=== PATIENT | male | born 1975 ===

== ENCOUNTER → 2024-05-11 | Day surgery (SDC) | payer SELFPAY ==
[2024-05-11] VITALS (8 sets, daily range): BP systolic 125–140; BP diastolic 72–92; PULSE 47–64; TEMP 97.7–98.2
[~2024-05-11] VITALS: Ht 180.3 cm; Wt 89.5 kg
[~2024-05-11] MED LIST: Acetaminophen 325 MG TAB PO PRN; Acetaminophen 500 MG TAB PO SCH; D5NS & 20 mEq KCl 1,000 ML IV SCH; FLOMAX 0.40.4 MG/CAP PO; Furosemide 40 MG/4 ML VIAL ONE; Glycopyrrolate 0.2 MG/ML 1 ML VIAL ONE; HYDROmorphone 1 MG/1 ML SYRINGE [PACU/SDC ONLY] IV PRN; Hyoscyamine 0.125 MG Sublingual TAB SL PRN; Iohexol 300 - 100 ML VIAL IV ONE; Ketorolac 15 MG/ML VIAL IV ONE; LR 1,000 ML IV SCH; Lidocaine 2% (20 MG/ML) 20 ML UROJET UR ONE; Lidocaine PF 2% (20 MG/ML) 5 ML VIAL ONE; MOTRIN 800800 MG/TAB PO; Morphine 4 MG/ML VIAL IV PRN; NORCO 325 MG-51 TAB PO; NS 1,000 ML IV ONE; NS 10 ML IV ONE; NS 100 ML IV SCH; Naloxone 0.4 MG/ML VIAL IV PRN; Ondansetron 4 MG/2 ML VIAL IV ONE; Ondansetron 4 MG/2 ML VIAL IV PRN; Ondansetron 4 MG/2 ML VIAL ONE; PERCOCET 325 MG1 TA2 PO; PYRIDIUM 100MG100 MG PO; TYLENOL 8 HR PO; ZOFRAN ODT4 MG PO; cefTRIAXone 1 G in Water For Injection,Sterile 10 ML IV ONE; dexAMETHasone 10 MG/ML VIAL ONE; droPERidol 2.5 MG/ML 2 ML VIAL IV PRN; fentaNYL 50 MCG/ML 1 ML SYRINGE/VIAL [PACU/SDC ONLY] IV PRN; fentaNYL 50 MCG/ML 2 ML VIAL ONE; hydrALAZINE 20 MG/ML 1 ML VIAL IV PRN
[2024-05-11 07:58] LABS: BASO # 0.1 K/mm3 (0.0-0.2); BASO % 0.5 % (0.0-2.0); EOS # 0.1 K/mm3 (0.0-0.7); EOS % 1.3 % (0.0-4.0); GRAN # 8.2 K/mm3 (1.4-6.5); GRAN % 73.9 % (42.2-75.2); HEMATOCRIT 38.8 % (42.0-52.0); HEMOGLOBIN 12.7 g/dl (13.5-18.0); LYMPH # 1.8 K/mm3 (1.2-3.4); LYMPH % 16.4 % (20.0-51.0); MEAN CELL VOLUME 91 fl (80.0-100.0); MEAN CORPUSCULAR HEMOGLOBIN 30 pg (27-31); MEAN CORPUSCULAR HGB CONC 33 g/dl (33.0-37.0); MEAN PLATELET VOLUME 10.5 fl (7.4-10.4); MONO # 0.8 K/mm3 (0.1-0.6); MONO % 7.6 % (1.7-9.3); PLATELET COUNT 178 K/mm3 (130-400); RED BLOOD COUNT 4.25 M/mm3 (4.20-5.60); REDCELL DISTRIBUTION WIDTH-CV 13.1 % (11.5-14.5)
[2024-05-11 08:18] LABS: ALBUMIN 3.8 g/dL (3.5-5.0); BILIRUBIN,TOTAL 0.4 mg/dL (0.2-1.2); CALCIUM 8.7 mg/dL (8.4-10.2); CREATININE, serum 1.09 mg/dL (0.72-1.25); POTASSIUM 4.2 mEq/L (3.5-4.5); TOTAL PROTEIN 6.3 g/dl (6.2-8.1)
--- NOTE | 2024-05-11 12:50 | NUR ---
Patient to room 359 from the ED by wheelchair. A&Ox4, independent in the room. VSS. IV CDI. Denies pain and discomfort. NPO. Instructed to strain urine. Nurse oriented the patient to location, room and call light. Call light within reach
[2024-05-11 13:08] LABS: URINE APPEARANCE CLEAR (CLEAR/HAZY); URINE BLOOD 2+ (NEGATIVE); URINE COLOR YELLOW (YELLOW); URINE GLUCOSE NEGATIVE (NEGATIVE); URINE KETONE TRACE (NEGATIVE); URINE NITRATE NEGATIVE (NEGATIVE); URINE PROTEIN(semi-quant) 1+ (NEGATIVE)
[2024-05-11 13:48] LABS: COLLECTION METHOD CLEAN CATCH
--- NOTE | 2024-05-11 19:30 | NUR ---
Pt to medical floor from PACU by bed. Report received from JEREMIAH Lin. Pt awake in room. A&O x4. Post op vital signs stable. Pt denies pain rating 0/10. Pt tolerating PO intake without complications. Pt has no request at this time. Call light within reach.
--- NOTE | 2024-05-11 19:50 | NUR ---
Pt continues to remove post op vital signs due to urinary frequency. Pt requesting post op vital signs to be discontinued. VSS. INT to Lt AC discontinued with tip intact, pt tolerated well with no complaints.
--- NOTE | 2024-05-11 21:20 | NUR ---
Discharge instructions provided to pt and pt verbalized understanding of discharge paperwork. Pt tolerated PO intake with no complications upon discharge. All questions and concerns answered accordingly before discharge. Pt is leaving facility via uber back to home.
== END ==
LOC: COL.ER 07:09 → SDCO 09:26 → COL.ER 09:26 → SDCO 09:26 → MEDICAL 09:26
PROVIDERS: Personal Emergency Response Attendant
DX: N20.1 Calculus of ureter (principal); Z87.891 Personal history of nicotine dependence
CPT/HCPCS: C1769; C1894; C2617; G0378; J0690; J0696; J1100; J1885; J1940; J2270; J2405; J2704; J3010; J3480; J7030; J7120; Q9967